=== PATIENT | female | born 1970 | race Caucasian/White ===

== ENCOUNTER 2019-09-21 05:34 | Emergency (ER) | payer OTHER, SELFPAY ==
[2019-09-21 05:43] VITALS: BP 148/96; PULSE 78; RESP 16; TEMP 36.4; O2SAT 97
--- NOTE | 2019-09-21 06:14 | W.ED.GENAD ---
Discharge Plan Disposition Patient Disposition: HOME Condition: Good Discharge Details Chief Complaint: Headache Clinical Impression: Migraine Primary Care Provider: [facility] ED Provider: Jeffrey Arango Meds and New Rx's Prescriptions: New metoclopramide HCl 10 mg tablet,disintegrating 10 mg PO Q6H PRN (Reason: migraine headache) Qty: 10 RF: 0 fluticasone propionate [Flonase Allergy Relief] 50 mcg/actuation spray,suspension 1 spray LOIS DAILY Qty: 9.9 RF: 0 Continued rizatriptan 10 mg Tablet 10 mg PRN PRNRF: 0 ketorolac 30 mg/mL Syringe 30 mg IM PRN PRNRF: 0 lansoprazole [Prevacid] 30 mg Capsule,Delayed Release(Dr/Ec) 30 mg PO DAILY RF: 0 Discharge Instructions Additional Instructions: At onset of new migraines usually triptan as previously prescribed. If that does not work and headache persists try the Reglan prescribed today. Try Flonase for your sinus symptoms. He will need to follow-up with primary care when you return home. Return to ED for any acute problems including neurologic changes, fever, worsening headache. Referrals: Primary Care Provider [Outside] Medical Decision Making Patient presenting with her typical migraine headache. It is not any different than prior. Has not resolved with normal medication. Is neurologically intact. Has been able to work with his family come in for treatment. Will place IV and give Reglan, Benadryl, Toradol and reevaluate. Patient feels much better and headache is resolved. We will have her use her triptans at onset of migraine but I will give her prescription for Reglan if that does not work. I am also going to give her a prescription for Flonase for her sinus symptoms. 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 Will need to follow-up on return home but can's be seen in ED for acute care problems. HPI General Mode of arrival: ambulatory. Date/Time Provider Initiated Documentation: 09/21/19 05:42. Limitations to Documentation: no limitations. Information obtained by: patient and RN notes reviewed. HPI Narrative: Patient presenting with migraine headache. Patient has history of migraines with auras. Typically resolve when she takes her triptan. This headache started about a week ago. She took her triptan with some help but continues to have right sided throbbing migraine headache. She has no associated neurologic changes. She has nausea with photophobia. 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 She does report a history of craniotomy with brain tumor resection 7 years ago. She is down to 1 MRI a year to follow. This headache that she is having is no different than any other prior headache other than just not resolving like they typically do. She does report sinus congestion and drainage as well as ear pain on and off since July. She has no fever, cough, shortness of breath. Related Data Home Medications Medication Instructions Recorded Confirmed fluticasone propionate [Flonase 1 spray LOIS DAILY #9.9 ml 09/21/19 Allergy Relief] ketorolac 30 mg IM PRN PRN 09/21/19 09/21/19 lansoprazole [Prevacid] 30 mg PO DAILY 09/21/19 09/21/19 metoclopramide HCl 10 mg PO Q6H PRN #10 tab 09/21/19 rizatriptan 10 mg PRN PRN 09/21/19 09/21/19 Previous Rx's Medication Instructions Recorded fluticasone propionate [Flonase 1 spray LOIS DAILY #9.9 ml 09/21/19 Allergy Relief] metoclopramide HCl 10 mg PO Q6H PRN #10 tab 09/21/19 Allergies Allergy/AdvReac Type Severity Reaction Status Date / Time erythromycin base Allergy Intermediate Unverified 09/21/19 05:51 Latex, Natural Rubber Allergy Intermediate Unverified 09/21/19 05:52 pegfilgrastim [From Neulasta] Allergy Intermediate Unverified 09/21/19 05:51 General Stated Complaint: Headache SRINIVASA: 4 Review of Systems Narrative: As documented in HPI otherwise negative as below. Const: no fever, chills, weakness Resp: no cough, SOB, pleuritic pain CV: no CP, diaphoresis, edema, syncope GI: nausea; no abdominal pain, vomiting, diarrhea Neuro: headache; no numbness, focal weakness, confusion PFSH Medical History Brain tumor (Resolved) resected; followed yearly with MRI Migraine (Chronic) Surgical History History of section (Chronic) S/P craniotomy (Chronic) Social History Smoking/Tobacco Use Status: Never Substance use type: does not use Do you feel safe at home: Yes Do you feel safe in your relationship?: Yes Exam Narrative Exam Narrative: Vitals: Afebrile. Elevated blood pressure. Otherwise normal vitals and room air pulse oximetry. Const: Obese female in NAD. HEENT: NC/AT. Normal facial exam. Minimal frontal/maxillary sinus tenderness. TMs clear bilaterally. Eyes: PERRL and EOMI Neck: Supple. Trachea midline. Lungs: Normal respiratory effort. Lungs are clear. Cor: RRR without murmur/gallop. Neuro: A+O x 3. Normal speech, mentation, gait. Cranial nerves II - XII grossly intact. No gross motor or sensory deficit. Course Vital Signs Vital signs: Vital Signs Temperature 97.6 F 09/21/19 05:43 Pulse 78 09/21/19 05:43 Respiratory Rate 16 09/21/19 05:43 Blood Pressure 148/96 H 09/21/19 05:43 Pulse Oximetry 97 09/21/19 05:43 Temperature 97.6 F 09/21/19 05:43 Temperature Source Temporal Artery Scan 09/21/19 05:43 Pulse 78 09/21/19 05:43 Respiratory Rate 16 09/21/19 05:43 Respiratory Effort 09/21/19 05:43 Blood Pressure 148/96 H 09/21/19 05:43 Pulse Oximetry 97 09/21/19 05:43 Pain Level 8 09/21/19 05:49
[2019-09-21] MEDS: Lactated Ringers 1,000 ML 1000 ML IV (06:32)
[2019-09-21] MEDS: Ketorolac 30 MG/ML VIAL IVP (06:33)
[2019-09-21] MEDS: diphenhydrAMINE 50 MG/ML VIAL 12.5 MG IVP (06:33)
[2019-09-21] MEDS: Metoclopramide 10 MG/2 ML VIAL IVP (06:33)
[2019-09-21 08:51] VITALS: BP 104/78; PULSE 61; RESP 18; TEMP 36.6; O2SAT 98
== END 2019-09-21 09:13 | disposition home or self-care (01) ==
PROVIDERS: Emergency Provider Emergency Medicine
DX: G43.909 Migraine, unspecified, not intractable, without status migrainosus (principal)
CPT/HCPCS: 96361; 96374; 96375; 99284; J1200; J1885; J2765